=== PATIENT | female | born 1990 | race African-American/Black ===

== ENCOUNTER 2016-05-12 20:27 | Inpatient (IN) | payer MEDICAID, OTHER ==
[~2016-05-12] VITALS: Ht 167.6 cm; Wt 117.9 kg
[~2016-05-12 20:27] MED LIST: FERR325T72 PO; PREN1CAP33 PO
[2016-05-12] MEDS ORDERED: LACTATED RINGER'S 1000 ML INJ 1,000 ML IV PRN (21:07)
[2016-05-12] MEDS ORDERED: MINERAL OIL 10 ML VIAL TOPICAL PRN (21:15)
[2016-05-12] MEDS ORDERED: CITRIC ACID-SODIUM CITRATE LIQ 30 ML UDC PO SCH (21:15)
[2016-05-12] MEDS ORDERED: SODIUM CHLORID 0.9% 500 ML INJ 500 ML IV PRN (21:15)
[2016-05-12] MEDS ORDERED: OXYTOCIN 30 UNITS-500ML PREMIX 500 ML IV ONE (21:15)
[2016-05-12] MEDS ORDERED: LIDOCAINE HCL 1% 50 ML VIAL I-DERMAL PRN (21:15)
[2016-05-12] MEDS ORDERED: LIDOCAINE HCL 1% 50 ML VIAL INFIL PRN (21:15)
[2016-05-12] MEDS ORDERED: ONDANSETRON HCL 4 MG/2 ML VIAL IV PRN (21:15)
[2016-05-12] MEDS ORDERED: PENICILLIN G POTASSIUM INJ 5,000,000 UNITS in SODIUM CHLORIDE 0.9% INJ 100 ML IV ONE (21:15)
--- NOTE | 2016-05-12 21:19 | HHI.HP ---
History & Physical H&P Contact w/Intl Traveler<30Days: No Known Affected Area: No History of Present Illness HPI This patient is a 26-year-old 4 para 3003 her EDC is May 14, 2016 she is presently at 39 weeks and 5 days she was seen in the office today by Dr. Jeffers where her blood pressure was found to be 152/[address] Abisai vasquez told to send the patient to the triage area that was this afternoon she is presently presenting at approximately 9 PM Late onset care at 31 weeks gestation at which time the sonogram was done which placed her EDC at May 14, 2016 the baby weight 4 lbs. 2 oz. at that time with normal-appearing anatomy her blood pressure was 130/72 Repeat sonogram done April 15, 2016 at 35 weeks and 6 days there was good growth between ultrasounds baby weight 6 lbs. 11 oz. fluid normal anatomy blood pressure at that time 119/65 problems include late onset care Patient desires a tubal ligation Treated for yeast infection Varicella nonimmune Anemia treated with iron Positive group B strep Laboratory data; oh positive hemoglobin of 10.5, rubella immune VDRL is nonreactive, hepatitis negative, HIV negative GC chlamydia negative, sickle cell negative, no history of MRSA, diabetic screen of 117, group B strep positive,,, History (Limited) History Past Medical History Narrative Medical No known drug allergies denies any medical problems no history of hypertension and no history of hypertension with any of her pregnancies Obstetric History Obstetric History First baby born February [birth year] 2007 at 42 weeks male 8 lbs. 4 oz. 8 hours of labor Second baby born June 252010 male weight 7 lbs. 6 oz. vaginal delivery Third baby born April [birth year], 2014 male infant weight 7 lbs. 9 oz. vaginal delivery Past Surgical History Surgical History: No Previous Surgery Family History Narrative Family History Grandmother has hypertension Social History Alcohol Use: No Tobacco Use: No Substance Abuse: No Allergies-Medications Allergies-Medications (Allergen,Severity, Reaction): Coded Allergies: No Known Allergies (Unverified , 05/12/16) Home Meds Active Scripts Ferrous Gluconate 325 Mg Uto686 Mg PO DAILY #30 TAB Ref 6 Prov:Shelbi Trivedi CNM [employer] 03/30/16 Vit W/ Fe Polysacch C (Vitafol Fe+ 90-1-200 & 50 mg)1 Cap Cap1 Cap PO DAILY #60 BOTTLE Ref 5 Prov:Shelbi Trivedi CNM [facility] 03/17/16 Without A W/ Fe Carbo (Prenate Mini 29-0.6-0.4-350 mg)1 Cap Cap Sample #3 Prov:Ailyn Rivero [employer] 03/17/16 ROS Review of Systems General / Constitutional: No: Fever, Weight Gain, Weight Loss, Chills, Other Eyes: Blurred Vision (occasional blurred vision), No: Diploplia, Visual changes, Pain, Photophobia, Other HENT: Headaches (states she has occasional headache), No: Vertigo, Dental Difficulties, Lightheadedness, Other Cardiovascular: No: Irregular Rhythm, Chest Pain or Discomfort, Palpitations, Tachycardia, Syncope, Varicosities, Edema, Cyanosis, Other Respiratory: No: Cough, Short of Breath, Wheezing, Other Gastrointestinal: No: Nausea, Vomiting, Diarrhea, Abdominal Pain, Hematemesis, Hematochezia, Constipation, Changes in Bowel Habits, Indigestion, Loss of Appetite, Other Genitourinary: No: Urgency, Frequency, Dysuria, Nocturia, Hematuria, Decreased Urinary Output, Oliguria, Hesitancy, Dribbling, Incontinence, Pelvic Pain, Dyspareunia, Discharge, Menorrhagia, Vaginal Bleeding, Other Musculoskeletal: No: Limited ROM, Weakness, Cramping, Edema, Pain, Other Physical Exam Physical Exam Narrative GENERAL: Well-nourished, well-developed patient. Alert oriented 3 and cooperative in no acute distress CARDIOVASCULAR: Regular rate and rhythm without murmurs, gallops, or rubs. RESPIRATORY: Breath sounds equal bilaterally. No accessory muscle use. ABDOMEN/GI: Gravid term estimated weight of 7 pounds no palpable contractions no epigastric or right upper quadrant tenderness Gravid to [-] weeks size term Fundal Height: [-] GENITOURINARY: External Genitalia: intact and normal in appearance BUS glands: [-] Cervix: [-] Posterior soft Dilatation: [-] 3 cm Effacement: [-] 0 Station: [-] -2 station Presentation: [-] Vertex Membranes: [intact Uterine Contractions: [-]0 FHT's: Category: [-] 1 Baseline: [-] 130 Reactive: [-] + Accelerations up to 175 Variability: [-] Moderate dspj-hf-gper variability Decels: [-] 0 EXTREMITIES: No cyanosis or edema. 2+ reflexes nonbrisk NEUROLOGICAL: Awake and alert. Motor and sensory grossly within normal limits. Five out of 5 muscle strength in all muscle groups. Normal speech. Data Data Data Vital Signs Reviewed: Yes (initial blood pressure 144/72 with pulse of 94 repeat blood pressure 134/57) [facility] Medical Record Reviewed: Yes Interpretation(s) 26-year-old 4 para 3 presently at 39 weeks and 5 days Mild -induced hypertension Multiparous Positive group B strep History of anemia Plan Admit External monitoring IV fluid hydration Penicillin coverage for group B strep CBC CMP uric acid urinalysis Pitocin augmentation of labor will began after second dose of antibiotics and prior to changing shifts Diagnosis Diagnosis: Primary Impression: with 39 completed weeks gestation Additional Impressions: induced hypertension, antepartum Group beta Strep positive Risa Vasquez MD May 12, 2016 21:19 Risa Vasquez MD May 12, 2016 21:19
[2016-05-12] MEDS ORDERED: SODIUM CHLOR 0.9% 1000 ML INJ 1,000 ML IV PRN (21:27)
[2016-05-12 21:55] VITALS: BP 140/69; PULSE 98; RESP 18
[2016-05-12] MEDS: LACTATED RINGER'S 1000 ML INJ 1,000 ML IV SCH (21:57)
[2016-05-12 22:04] VITALS: BP 125/70; PULSE 101
[2016-05-12 22:15] LABS: AUTOMATED NEUTROPHIL # 8.8 TH/MM3 (1.8-7.7); BASOPHIL % 0.4 % (0.0-2.0); EOSINOPHIL # 0.1 TH/MM3 (0-0.4); EOSINOPHIL % 0.7 % (0.0-4.0); HEMATOCRIT 33.3 % (35.0-46.0); HEMO FLAGS DIFF FINAL; LYMPH % 20.6 % (9.0-44.0); LYMPHOCYTE # 2.5 TH/MM3 (1.0-4.8); MEAN CELL VOLUME 87.2 FL (80.0-100.0); MEAN CORPUSCULAR HEMOGLOBIN 30.1 PG (27.0-34.0); MEAN CORPUSCULAR HGB CONC 34.5 % (32.0-36.0); MONO % 4.9 % (0.0-8.0); NEUT % 73.4 % (16.0-70.0); PLATELET COUNT 249 TH/MM3 (150-450); RED BLOOD COUNT 3.82 MIL/MM3 (4.00-5.30); RED CELL DISTRIBUTION WIDTH 15.4 % (11.6-17.2); WHITE BLOOD COUNT 11.9 TH/MM3 (4.0-11.0)
[2016-05-12 22:20] LABS: BACTERIA, URINE FEW /hpf; BLOOD, URINE SMALL (NEG); CALCIUM OXALATE CRYSTALS,URINE MOD /hpf; COMMENT (UR) CULTURE INDICATED; CULTURE IF INDICATED CULTURE INDICATED; GLUCOSE,URINE NEG (NEG); KETONE, URINE NEG (NEG); NITRITE,URINE NEG (NEG); PH, URINE 6.5 (5.0-8.5); SQUAMOUS EPITHELIAL CELL URINE 34 /hpf (0-5); URINE COLOR YELLOW (YELLW/STRAW)
[2016-05-12 22:27] LABS: ALT (GPT) 21 U/L (10-53); ANION GAP 8 MEQ/L (5-15); AST (GOT) 15 U/L (15-37); BICARBONATE 25.2 MEQ/L (21.0-32.0); BLOOD UREA NITROGEN 8 MG/DL (7-18); CHLORIDE 107 MEQ/L (98-107); GLOMERULAR FILTRATION RATE 171 ML/MIN (>89); POTASSIUM 3.8 MEQ/L (3.5-5.1); SODIUM (NA) 140 MEQ/L (136-145); URIC ACID 2.5 MG/DL (2.6-6.0)
[2016-05-12 22:29] LABS: ALKALINE PHOSPHATASE 262 U/L (45-117); TOTAL BILIRUBIN ADULT 0.2 MG/DL (0.2-1.0)
[2016-05-12 23:09] VITALS: BP 120/63; PULSE 94
[2016-05-12 23:12] VITALS: RESP 18
[2016-05-13] VITALS (40 sets, daily range): BP systolic 87–133; BP diastolic 40–78; PULSE 80–100; RESP 16–20; TEMP 97.8–98.8
[2016-05-13] MEDS: PENICILLIN G POTASSIUM INJ 2,500,000 UNITS in SODIUM CHLORIDE 0.9% INJ 100 ML IV SCH ×4 (02:01→17:15)
[2016-05-13] MEDS ORDERED: OXYTOCIN 30 UNITS-500ML PREMIX 500 ML IV SCH (05:00)
[2016-05-13] MEDS: LACTATED RINGER'S 1000 ML INJ 1,000 ML IV SCH (05:07)
--- NOTE | 2016-05-13 08:49 | PD.LABORPN ---
Subjective Subjective Patient evaluated for AROM and IUPC placement. Patient is doing well. AROM and IUPC performed without complication. No complaints at this time. Objective Vital Signs Vital Signs Date Time Temp Pulse Resp B/P Pulse Ox O2 Delivery O2 Flow Rate FiO2 05/13/16 08:01 82 94/50 05/13/16 07:31 81 110/64 05/13/16 07:15 17 05/13/16 07:11 98.3 05/13/16 07:01 94 109/64 05/13/16 06:31 92 110/56 05/13/16 06:15 18 05/13/16 06:01 83 108/69 05/13/16 05:30 95 114/73 05/13/16 04:01 86 117/64 05/13/16 03:27 16 05/13/16 03:01 83 99/59 05/13/16 02:05 85 05/13/16 02:03 80 05/13/16 02:01 84 87/40 05/13/16 02:00 97.8 16 Objective Pelvic Exam: Cervix: anterior Dilatation: 5 cm Effacement: 70 Station: - 1 Presentation: vertex Membranes: ruptured] Uterine Contractions: q2-5 minutes FHT's: Category: 1 Baseline: 130 Reactive: yes, with accelerations Variability: moderate Decels: no Assessment/Plan Problem List: (1) with 39 completed weeks gestation Assessment and Plan 26 at 39.6 in labor AROM and IUPC performed without complication. Patient tolerated procedure well Cat 1 tracing Expectant vaginal delivery No epidural desired. GBS +, treated with PCN X2 Sincere Kendrick MD R2 May 13, 2016 08:49
--- NOTE | 2016-05-13 13:58 | PD.OB.DELI ---
Delivery Date: May 13, 2016 Anesthesia: None Episiotomy: None Vaginal Delivery: Normal, Spontaneous Presentation: Occiput anterior Nuchal Cord: x1 Delayed cord clamping (45 sec): No : Female, Single One Minute : 9 Five Minute : 9 Weight: 3415 Infant Care: Suctioned, Spontaneous crying, Responded to stimulation Placenta: Spontaneous delivery, Intact, 3 vessel cord Laceration: Vaginal laceration, 2 deg Repair: Chromic running Additional Information Delivery by Dr. Novak Laceration Repair by Dr. Kendrick Attending: Alejandra Lugo MD R1 May 13, 2016 13:58
[2016-05-13] MEDS ORDERED: SODIUM CHLORIDE 0.9% FLUSH 5 ML FLUSH IV SCH (14:00)
[2016-05-13] MEDS ORDERED: ONDANSETRON ODT 4 MG TAB PO PRN (14:00)
[2016-05-13] MEDS ORDERED: SODIUM CHLORIDE 0.9% FLUSH 5 ML FLUSH IV PRN (14:00)
[2016-05-13] MEDS ORDERED: oxyCODONE/ACETAMINOPHEN 5 MG/325 MG TAB PO PRN ×2 (14:00)
[2016-05-13] MEDS ORDERED: WITCH HAZEL 50%/GLYCERIN 12.5% 40 PAD JAR TOPICAL PRN (14:00)
[2016-05-13] MEDS ORDERED: BENZOCAINE 20% TOPICAL SPRAY 60 ML CAN TOPICAL PRN (14:00)
[2016-05-13] MEDS ORDERED: ALUMINUM/MAGNESIUM/SIMETH 30 ML CUP PO PRN (14:00)
[2016-05-13] MEDS ORDERED: ACETAMINOPHEN 325 MG TAB PO PRN (14:00)
[2016-05-13] MEDS ORDERED: IBUPROFEN 600 MG TAB PO PRN (14:00)
--- NOTE | 2016-05-13 14:03 | PD.LABORPN ---
Subjective Subjective The OB attending note This patient at 39 weeks 6 days induced for PIH and was delivery summary. Patient delivered vaginally over a second-degree perineal laceration without difficulty , delivery done by the family practice residency in excellent job , female infant weight 3415 gm 9/9, second-degree perineal laceration repaired in layers by the resident due to job, placenta spontaneously no problem. The mother and baby doing well Objective Vital Signs Vital Signs Date Time Temp Pulse Resp B/P Pulse Ox O2 Delivery O2 Flow Rate FiO2 05/13/16 12:01 86 117/75 05/13/16 11:31 92 102/54 05/13/16 11:30 98.1 05/13/16 11:30 20 05/13/16 11:01 88 116/66 05/13/16 10:01 80 128/73 05/13/16 09:01 81 119/65 05/13/16 08:43 81 116/75 05/13/16 08:01 82 94/50 05/13/16 07:31 81 110/64 05/13/16 07:15 17 05/13/16 07:11 98.3 05/13/16 07:01 94 109/64 05/13/16 06:31 92 110/56 05/13/16 06:15 18 05/13/16 06:01 83 108/69 Objective Assessment/Plan Problem List: (1) with 39 completed weeks gestation Dorian Ramos II, MD May 13, 2016 14:03
[2016-05-13] MEDS ORDERED: DIPHTH/TETANUS/ACEL PERTUSSIS (BOOSTER) 0.5 ML VIAL/PFS IM ONE (16:00)
[2016-05-13] MEDS ORDERED: MEASLES, MUMPS, RUBELLA VACCINE 0.5 ML VIAL SQ ONE (16:00)
[2016-05-13] MEDS ORDERED: ZOLPIDEM TARTRATE 5 MG TAB PO PRN (21:00)
[2016-05-14 07:30] VITALS: BP 107/66; PULSE 88; RESP 16; TEMP 98.6; O2SAT 99
--- NOTE | 2016-05-14 08:29 | HHI.OB ---
Subjective Post Day: 1 Remarks Patient doing well this morning. Pain is controlled with medications. Vaginal bleeding roughly amount of a period. She is breast-feeding successfully. No chest pain, shortness of breath, fever, chills. Objective Vitals/I&O Vital Signs Date Time Temp Pulse Resp B/P Pulse Ox O2 Delivery O2 Flow Rate FiO2 05/13/16 20:50 98.8 93 20 121/73 05/13/16 17:45 90 16 104/68 05/13/16 17:45 98.7 05/13/16 14:46 98 114/76 05/13/16 14:35 91 110/70 05/13/16 14:25 95 121/75 05/13/16 14:09 18 05/13/16 14:06 98.2 05/13/16 14:01 100 112/54 05/13/16 13:34 99 118/73 05/13/16 12:47 94 124/56 05/13/16 12:01 86 117/75 05/13/16 11:31 92 102/54 05/13/16 11:30 98.1 05/13/16 11:30 20 05/13/16 11:01 88 116/66 05/13/16 10:31 96 133/78 05/13/16 10:01 80 128/73 05/13/16 09:31 84 122/69 05/13/16 09:15 98.2 05/13/16 09:01 81 119/65 05/13/16 08:43 81 116/75 Objective Remarks GENERAL: Well-nourished, well-developed patient. CARDIOVASCULAR: Regular rate and rhythm without murmurs, gallops, or rubs. RESPIRATORY: Breath sounds equal bilaterally. No accessory muscle use. ABDOMEN/GI: Abdomen soft, non-tender. Fundus: Firm, non-tender at umbilicus. GENITOURINARY: Light to moderate bleeding. EXTREMITIES: No cyanosis or edema, non-tender, without signs of DVT. Medications and IVs Current Medications Medications (Trade) Dose Ordered Sig/Mile Route Start Time Stop Time Status Last Admin Lactated Ringer's 1,000 ml @ 125 mls/hr Q8H IV 05/12/16 21:07 05/13/16 05:07 Lactated Ringer's 1,000 ml @ 3,000 mls/hr Q20M PRN IV 05/12/16 21:07 (NS 1000 ml Inj) 1,000 ml @ 100 mls/hr Q10H PRN IV 05/12/16 21:27 (Zofran Inj) 4 mg Q6H PRN IV 05/12/16 21:15 (fentaNYL INJ) 50 mcg Q1H PRN IV PUSH 05/12/16 21:15 Fentanyl Citrate 100 mcg 100 mcg Q1H PRN IV PUSH 05/12/16 21:15 05/13/16 13:44 (Pfizerpen-G Inj/ NS Inj) 100 ml @ 200 mls/hr Q4H IV 05/13/16 01:15 05/13/16 10:01 Mineral Oil 10 ml 10 ml UNSCH PRN TOPICAL 05/12/16 21:15 (Pitocin 30 Units-NS 500 ml Premix) 500 ml @ 0 mls/hr TITRATE IV 05/13/16 05:00 05/13/16 05:15 (NS Flush) 2 ml BID IV 05/13/16 14:00 (NS Flush) 2 ml UNSCH PRN IV 05/13/16 14:00 (Tylenol) 650 mg Q4H PRN PO 05/13/16 14:00 (Motrin) 600 mg Q6H PRN PO 05/13/16 14:00 05/13/16 17:58 (Percocet 5-325 Mg) 1 tab Q4H PRN PO 05/13/16 14:00 (Percocet 5-325 Mg) 2 tab Q4H PRN PO 05/13/16 14:00 (Americaine 20% Top Spr) 1 spray Q4H PRN TOPICAL 05/13/16 14:00 05/13/16 17:58 (Tucks Pads) 1 applic QID PRN TOPICAL 05/13/16 14:00 05/13/16 17:58 (Ashley-Colace) 2 tab Q12H PRN PO 05/13/16 14:00 (Ambien) 5 mg HS PRN PO 05/13/16 21:00 (Mag-Al Plus Susp Liq) 15 ml Q8H PRN PO 05/13/16 14:00 (Zofran Odt) 4 mg Q6H PRN PO 05/13/16 14:00 Assessment/Plan Problem List: (1) Vaginal delivery Assessment and Plan 26 year old PPD1 1. Care - AFVSS since delivery - Motrin prn pain - Encouraged OOB, as tolerated - Pelvic rest x 6 weeks - Will f/u with OB provider in 4-6 weeks - Anticipate d/c tomorrow Discharge Planning Likely tomorrow Sincere Kendrick MD R2 May 14, 2016 08:29
[2016-05-14] MEDS: DOCUSATE SODIUM 50 MG/SENNA 8.6 MG TAB PO PRN ×2 (08:38→22:09)
[2016-05-14] MEDS: LACTATED RINGER'S 1000 ML INJ 1,000 ML IV SCH (13:07)
[2016-05-14] MEDS: PENICILLIN G POTASSIUM INJ 2,500,000 UNITS in SODIUM CHLORIDE 0.9% INJ 100 ML IV SCH (13:15)
[2016-05-14 19:30] VITALS: BP 119/66; PULSE 62; RESP 20; TEMP 98.5; O2SAT 99
[2016-05-15 08:12] VITALS: BP 119/57; PULSE 82; RESP 16; TEMP 98.9
--- NOTE | 2016-05-15 09:11 | HHI.OB ---
Subjective Post Day: 2 Remarks 26 year old female s/p at 39/6 wks gestation, PPD 2. AFVSS. Patient reports she is feeling well. Bleeding is decreasing and pain is well- controlled. She is breast feeding and bonding well with baby. Ambulating without difficulties. She is tolerating a diet without nausea or vomiting. She has had a bowel movement. Denies chest pain, dysuria, shortness of breath, or calf pain. (Faith Stanton MD R2) Remarks Patient seen and evaluated with resident under direct supervision, agree with assessment and plan. (Andrea Ventura MD) Objective Vitals/I&O Vital Signs Date Time Temp Pulse Resp B/P Pulse Ox O2 Delivery O2 Flow Rate FiO2 05/15/16 08:12 98.9 05/15/16 08:12 82 16 119/57 05/14/16 19:30 119/66 05/14/16 19:30 98.5 62 20 99 Objective Remarks GENERAL: Well-nourished, well-developed patient. CARDIOVASCULAR: Regular rate and rhythm without murmurs, gallops, or rubs. RESPIRATORY: Breath sounds equal bilaterally. No accessory muscle use. ABDOMEN/GI: Abdomen soft, non-tender. Fundus: Firm, non-tender at umbilicus. GENITOURINARY: Light to moderate bleeding. EXTREMITIES: No cyanosis or edema, non-tender, without signs of DVT. Medications and IVs Current Medications Medications (Trade) Dose Ordered Sig/Mile Route Start Time Stop Time Status Last Admin Lactated Ringer's 1,000 ml @ 125 mls/hr Q8H IV 05/12/16 21:07 05/13/16 05:07 Lactated Ringer's 1,000 ml @ 3,000 mls/hr Q20M PRN IV 05/12/16 21:07 (NS 1000 ml Inj) 1,000 ml @ 100 mls/hr Q10H PRN IV 05/12/16 21:27 (Zofran Inj) 4 mg Q6H PRN IV 05/12/16 21:15 (fentaNYL INJ) 50 mcg Q1H PRN IV PUSH 05/12/16 21:15 Fentanyl Citrate 100 mcg 100 mcg Q1H PRN IV PUSH 05/12/16 21:15 05/13/16 13:44 (Pfizerpen-G Inj/ NS Inj) 100 ml @ 200 mls/hr Q4H IV 05/13/16 01:15 05/13/16 10:01 Mineral Oil 10 ml 10 ml UNSCH PRN TOPICAL 05/12/16 21:15 (Pitocin 30 Units-NS 500 ml Premix) 500 ml @ 0 mls/hr TITRATE IV 05/13/16 05:00 05/13/16 05:15 (NS Flush) 2 ml BID IV 05/13/16 14:00 (NS Flush) 2 ml UNSCH PRN IV 05/13/16 14:00 (Tylenol) 650 mg Q4H PRN PO 05/13/16 14:00 (Motrin) 600 mg Q6H PRN PO 05/13/16 14:00 05/13/16 17:58 (Percocet 5-325 Mg) 1 tab Q4H PRN PO 05/13/16 14:00 (Percocet 5-325 Mg) 2 tab Q4H PRN PO 05/13/16 14:00 (Americaine 20% Top Spr) 1 spray Q4H PRN TOPICAL 05/13/16 14:00 05/13/16 17:58 (Tucks Pads) 1 applic QID PRN TOPICAL 05/13/16 14:00 05/13/16 17:58 (Ashley-Colace) 2 tab Q12H PRN PO 05/13/16 14:00 05/14/16 22:09 (Ambien) 5 mg HS PRN PO 05/13/16 21:00 (Mag-Al Plus Susp Liq) 15 ml Q8H PRN PO 05/13/16 14:00 (Zofran Odt) 4 mg Q6H PRN PO 05/13/16 14:00 (Faith Stanton MD R2) Assessment/Plan Problem List: (1) Vaginal delivery Assessment and Plan 26 year old PPD2 1. Care - AFVSS since delivery - Motrin prn pain - Encouraged OOB, as tolerated - Pelvic rest x 6 weeks. Will be getting tubal ligation as an outpatient. - Will f/u with OB provider in 4-6 weeks (care for woman). - Anticipate d/c today dw Dr. Ventura (Faith Stanton MD R2) Faith Stanton MD R2 May 15, 2016 09:11 Andrea Ventura MD May 15, 2016 09:36
[2016-05-15] MEDS ORDERED: IBUP-232 PO (09:17)
--- NOTE | 2016-05-15 09:17 | HHI.DCPOC ---
Discharge Care Plan Diagnosis: (1) Vaginal delivery Report Symptoms to Your Doctor -Temperate above 100.5 degrees -Redness, of incision or excessive or foul smelling drainage -Unusual pain or calf pain -Increased vaginal bleeding -Painful or difficulty urinating -Feelings of extreme sadness or anxiety after 2 weeks Goals to Promote Your Health * To prevent worsening of your condition and complications * To maintain your health at the optimal level Directions to Meet Your Goals Take your medications as prescribed Follow your dietary instruction Follow activity as directed Ensure plenty of rest for recovery Drink fluids for hydration Keep your appointments as scheduled Take your immunizations and boosters as scheduled If your symptoms worsen call your PCP, if no PCP go to Urgent Care Center or Emergency Room Smoking is Dangerous to Your Health. Avoid second hand smoke Call the 24-hour crisis hotline for domestic abuse at Faith Stanton MD R2 May 15, 2016 09:17
== END 2016-05-15 18:25 | disposition home or self-care (01) | DRG 775 ==
LOC: HOBED 20:27 → H2EB 21:09 → H1EA 05-13 15:32
PROVIDERS: ADMIT Obstetrics & Gynecology; ATTEND Obstetrics & Gynecology
PROC: 10E0XZZ Delivery of Products of Conception, External Approach (ICD-10-PCS; principal; 2016-05-13)
PROC: 0KQM0ZZ Repair Perineum Muscle, Open Approach (ICD-10-PCS; 2016-05-13)
DX: O13.4 Gestational [pregnancy-induced] hypertension without significant proteinuria, complicating childbirth (principal); B37.9 Candidiasis, unspecified; Z37.0 Single live birth; O99.02 Anemia complicating childbirth; O99.824 Streptococcus B carrier state complicating childbirth; O69.81X0 Labor and delivery complicated by cord around neck, without compression, not applicable or unspecified; O70.1 Second degree perineal laceration during delivery; Z3A.39 39 weeks gestation of pregnancy
CPT/HCPCS: 80053; 81001; 84550; 85025; 86850; 86900; 86901; 87086; 99285; J2540; J2590; J3010; J7120